=== PATIENT | female | born 1965 | race Caucasian/White ===

== ENCOUNTER → 2021-01-11 07:43 | Outpatient (CLI) | payer BC, SELFPAY ==
[2021-01-11 08:47] LABS: Add Manual Diff / Slide Review NO; Basophils Absolute Auto 100 /uL (0-100); Basophils Percent Auto 1.1 % (0-2); Eosinophils Absolute Auto 300 /uL (0-450); Eosinophils Percent Auto 4.2 % (2-4); Hemoglobin 14.1 g/dL (12.0-16.0); Lymphocytes Absolute Auto 2200 /uL (1100-4500); Lymphocytes Percent Auto 34.8 % (25-40); Mean Corpuscular HGB Conc 33.5 % (30-36); Mean Corpuscular Hemoglobin 30.7 PG (26-34); Mean Corpuscular Volume 91.5 fL (80-100); Monocytes Absolute Auto 400 /uL (0-900); Monocytes Percent Auto 6.2 % (3-14); Neutrophils Absolute Auto 3400 /uL (1500-7000); Neutrophils Percent Auto 53.7 % (50-75); Platelet Count 336 X10^3/uL (150-400); Red Blood Cell Count 4.58 X10^6/uL (4.0-5.2); Red Cell Distribution Width 13.6 % (11.6-14.8); White Blood Cell Count 6.4 X10^3/uL (4.5-11.0)
[2021-01-11 09:38] LABS: Alanine Aminotransferase 10 IU/L (<35); Albumin 4.3 g/dL (3.5-5.0); Albumin Globulin Ratio 1.4 (1.0-2.8); Alkaline Phosphatase 69 U/L (38-126); Aspartate Aminotransferase 26 IU/L (14-36); Bilirubin Total 0.4 mg/dL (0.2-1.3); Blood Urea Nitrogen 17 mg/dL (7-17); Calcium 9.2 mg/dL (8.4-10.2); Carbon Dioxide 23 mmol/L (22-32); Chloride 107 mmol/L (98-107); Cholesterol 201 mg/dL (140-199); Estimated Glomerular Filt Rate > 60.0 mL/min (>60); Globulin 3.1 g/dL (1.7-4.1); Glucose 95 mg/dL (70-100); HDL Cholesterol 82 mg/dL (40-60); HEMOLYSIS < 15 (0-50); LDL Cholesterol Calculated 102 mg/dL (<100); Potassium 4.1 mmol/L (3.4-5.1); Sodium 138 mmol/L (137-145); Total Protein 7.4 g/dL (6.3-8.2); Triglycerides 84 mg/dL (35-150)
[2021-01-11 09:47] LABS: Thyroid Stimulating Hormone 3.26 uIU/mL (0.47-4.68)
== END ==
PROVIDERS: Referring Provider Nurse Practitioner Obstetrics & Gynecology; Visit Provider Nurse Practitioner Obstetrics & Gynecology
DX: Z13.9 Encounter for screening, unspecified (principal); Z13.228 Encounter for screening for other metabolic disorders; Z13.220 Encounter for screening for lipoid disorders; Z13.29 Encounter for screening for other suspected endocrine disorder
CPT/HCPCS: 36415; 80053; 80061; 84443; 85025

== ENCOUNTER → 2023-01-16 07:55 | Outpatient (CLI) | payer BC, SELFPAY ==
[2023-01-16 09:44] LABS: Hematocrit 42.5 % (36-46); Hemoglobin 14.4 g/dL (12.0-16.0); Mean Corpuscular HGB Conc 33.9 % (30-36); Mean Corpuscular Hemoglobin 31.2 PG (26-34); Platelet Count 355 X10^3/uL (150-400); Red Blood Cell Count 4.62 X10^6/uL (4.0-5.2); Red Cell Distribution Width 13.7 % (11.6-14.8); White Blood Cell Count 6.7 X10^3/uL (4.5-11.0)
[2023-01-16 10:08] LABS: Alanine Aminotransferase 17 IU/L (<35); Albumin 4.4 g/dL (3.5-5.0); Albumin Globulin Ratio 1.5 (1.0-2.8); Alkaline Phosphatase 67 U/L (38-126); Aspartate Aminotransferase 25 IU/L (14-36); BUN Creatinine Ratio 21.4 (6-22); Bilirubin Total 0.7 mg/dL (0.2-1.3); Blood Urea Nitrogen 18 mg/dL (7-17); Calcium 8.8 mg/dL (8.4-10.2); Carbon Dioxide 25 mmol/L (22-32); Chloride 105 mmol/L (98-107); Cholesterol 207 mg/dL (140-199); Estimated Glomerular Filt Rate > 60 mL/min (>60); Glucose 87 mg/dL (70-100); HDL Cholesterol 78 mg/dL (40-60); HEMOLYSIS < 15 (0-50); LDL Cholesterol Calculated 113 mg/dL (<100); Magnesium 2.2 mg/dL (1.6-2.3); Potassium 4.4 mmol/L (3.4-5.1); Sodium 139 mmol/L (137-145); Total Protein 7.4 g/dL (6.3-8.2); Triglycerides 82 mg/dL (35-150)
[2023-01-16 10:21] LABS: Free T4, Direct Thyroxine 1.05 ng/dL (0.78-2.19)
[2023-01-16 10:22] LABS: Prolactin 17.3 ng/mL (3.0-18.6)
[2023-01-16 10:23] LABS: Vitamin D 25 Hydroxy (D3) 21.8 ng/mL (30.0-100.0)
[2023-01-16 10:35] LABS: Thyroid Stimulating Hormone 2.77 uIU/mL (0.47-4.68)
[2023-01-17 07:36] LABS: x Labcorp Estim. Avg Glu (eAG) 108 mg/dL (.); x Labcorp Hemoglobin A1c 5.4 % (4.8-5.6)
== END ==
PROVIDERS: PCP Registered Nurse Diabetes Educator; Referring Provider Registered Nurse Diabetes Educator; Visit Provider Registered Nurse Diabetes Educator
DX: Z00.00 Encounter for general adult medical examination without abnormal findings (principal); G43.009 Migraine without aura, not intractable, without status migrainosus; L68.0 Hirsutism; R63.5 Abnormal weight gain
CPT/HCPCS: 36415; 80053; 80061; 82306; 82627; 83036; 83498; 83735; 84146; 84403; 84439; 84443; 85027

== ENCOUNTER 2023-04-27 06:32 | Day surgery (SDC) | payer BC, SELFPAY ==
--- NOTE | 2023-04-27 | PATH_ITS ---
[facility] Accession Number: [id number] No. of containers..02 Tissue . 01 Material submitted: . PART A: colon - TRANSVERSE POLYP PART B: colon - DESCENDING POLYP . 01 Diagnosis: A. Transverse Colon, Polyp: Tubular adenoma. . B. Descending Colon, Polyp: Benign lymphoid aggregate. [facility] 05/07/2023 1134 Local . 01 Electronically signed: . Cristiana Lopez MD, Pathologist NPI- [id number] . 01 Gross description: . Part A: TRANSVERSE POLYP: Received in formalin are 3 fragment(s) of álvarez, soft tissue measuring 0.1 x 0.1 x 0.1 cm to 0.4 x 0.1 x 0.1 cm submitted entirely in 1 cassette(s) Part B: DESCENDING POLYP: Received in formalin is 1 fragment(s) of álvarez, soft tissue measuring 0.4 x 0.1 x 0.1 cm submitted entirely in 1 cassette(s) /SHAKEEL 05/03/2023 0109 Local . 01 Pathologist provided ICD-10: D12.3 . 01 CPT . 501191, 534506 Specimen Comment: A courtesy copy of this report has been sent to [facility] Pathology Performed at: 01 [facility] [address] [facility] [address] [facility], [place], [place] [id number] MD Oziel Boston MD Phone: [phone]
[2023-04-27 06:51] VITALS: BP 159/89; PULSE 81; RESP 16; TEMP 36.6; O2SAT 98; BMI 25.6
[2023-04-27] MEDS: LACTATED RINGERS 1,000 ML 125 ML IV (07:07)
--- NOTE | 2023-04-27 07:40 | P.HP_ITS ---
History of Present Illness History of Present Illness Date Patient Seen: 04/27/23 Time Patient Seen: 07:40 Chief complaint: Colonoscopy Narrative: 57-year-old female presents today for screening colonoscopy. She was seen in my office on 02/27/23. She has tried the fiber and is still having some symptoms from her hemorrhoid. She does have a grandfather who from colon cancer and is 8 years out from her 1st colonoscopy believes she has had polyps. She has s ome symptoms of irritation with hemorrhoid that she finds concerning. She is a little anxious about what the findings may be today but understands the risks and would like to proceed. [facility] Medical History Abnormal Pap smear of cervix (~1986) Acne (~1978) Chicken pox Dyslipidemia Migraines (~1984) Mitral valve prolapse (~1979) Surgical History Anesthesia History of breast augmentation (~10/2005) History of section (~11/14/91) History of oral surgery History of tonsillectomy (~11/2001) [place] teeth removed (~10/2015) Family History Father Hyperlipidemia Mother Cancer Hyperlipidemia Hypertension Mental health problem Grandfather Stroke Grandmother Diabetes mellitus Grandfather Cancer Grandmother Alzheimer's disease Dementia Social History household members: spouse Smoking Status: Never smoker alcohol intake: never Meds Home Medications and Allergies Home Medications Medication Instructions Recorded Confirmed Type chlorpheniramine maleate 4 mg 4 mg PO Q6H PRN Allergy Symptoms 01/15/23 04/27/23 History tablet estradiol-norethindrone acet 1 1 tab PO DAILY #84 tabs 04/18/23 04/27/23 Rx mg-0.5 mg tablet (Activella) sodium sul 1.479 gram-potas ch See Rx Instructions PO PER PKG DIR 04/24/23 Rx 0.188 gram-magnes sul 0.225 gram #24 tabs tablet (Sutab) Allergies Allergy/AdvReac Type Severity Reaction Status Date / Time ibuprofen AdvReac Severe Abdominal Verified 04/27/23 06:47 Pain Exam Vital Signs (past 8 hours): - 04/27/23 06:51 Temperature 97.9 F Pulse Rate 81 Respiratory Rate 16 Blood Pressure 159/89 H Pulse Oximetry 98 Oxygen Delivery Method Room Air Oxygen Delivery Method Room Air Const General: cooperative, healthy appearing and comfortable HENMT Head: normal to inspection Eyes General: appearance normal, both eyes and all related structures Resp Effort & Inspection: normal respiratory effort and able to speak in complete sentences GI Palpation: soft and No tender Extrem General: normal to inspection Assessment & Plan Assessment and plan (1) Internal hemorrhoid: Status: Acute Assessment & Plan narrative: Presents today for screening colonoscopy I discussed the risks benefits and alternatives including but not limited to perforation of the colon and an incomplete exam she fully understands these risks and would like to proceed.
[2023-04-27 08:33] VITALS: BP 101/63; PULSE 67; RESP 12; TEMP 36.4; O2SAT 97
[2023-04-27 08:39] VITALS: BP 118/79; PULSE 66; RESP 12; O2SAT 99
[2023-04-27 08:43] VITALS: BP 132/82; PULSE 71; RESP 16; RESP 17; TEMP 36.8; O2SAT 100
--- NOTE | 2023-04-27 08:46 | PM.OP.COLON ---
Operative Date/Time/Diagnoses Date of procedure: 04/27/23 Time of procedure: 08:46 Pre-op diagnosis: Internal hemorrhoid, screening colonoscopy, family history of colon cancer Procedure & Clinicians Study performed: 1.Colonoscopy and biopsy 2. Internal hemorrhoid banding of 1 pile-right posterior position Same procedure as scheduled: Yes Indications: Family history of colon cancer, history of polyps. Internal hemorrhoids symptoms Surgeon: Juju Stout Procedure Notes Procedure in detail: Patient was taken to the endoscopy suite and placed in a left lateral decubitus position. A time-out was performed. With the help of anesthesiologist conscious sedation was induced and monitored throughout the case. A digital rectal exam was performed and there were no masses or strictures. No external hemorrhoids were appreciated on exam. There were a few skin tags and in particular a scar in the perineal area between the vaginal opening and the anal opening. The colonoscope was introduced into the anal canal and advanced through to the cecum. A photograph of the appendiceal orifice was obtained. The bowel prep was good [place] bowel prep score of 2. The scope was then withdrawn for a total of 12 minutes and there was proximally 7 or 8 mm sessile polyp in the transverse colon a photograph was obtained of this polyp and it was removed in 3 bites of the Jumbo forceps and sent for pathology. Upon further withdrawal there was 1 very small polyp in the descending colon which was removed in a single bite with the forceps. The scope was then retroflexed and a photograph of the internal hemorrhoidal piles was obtained. There was 1 most prominent internal hemorrhoid seen and a decision was made to proceed with a banding procedure. The colonoscope was withdrawn and the anoscope was introduced. The hemorrhoidal piles were examined once again and again there was 1 most prominent pile, which was in the right posterior position. A band was placed well above the dentate line and distal to the bulging hemorrhoid. The band was secure and in place and there was some bleeding of the mucosa which was contained within the band but otherwise was acceptably hemostatic and secure. Patient tolerated this procedure well scope was then withdrawn and she went in good condition to the postoperative care unit. Specimen(s): other (1. Transverse colon polyp 2. Descending colon polyp) Complications: none Post-procedure Plan for aftercare: Based on pathology report follow up recommendation will be made. With a family history of colon cancer generally a 5 year follow-up is recommended.
[2023-04-27 08:49] VITALS: BP 132/82; PULSE 72; RESP 18; O2SAT 100
== END 2023-04-27 09:05 | disposition home or self-care (01) ==
PROVIDERS: PCP Registered Nurse Diabetes Educator; Referring Provider Surgery; Visit Provider Surgery
PROC: 0DJD8ZZ Inspection of Lower Intestinal Tract, Via Natural or Artificial Opening Endoscopic (ICD-10-PCS; CPT 45378; principal; 2023-04-27 07:45)
DX: Z12.11 Encounter for screening for malignant neoplasm of colon (principal); Z80.0 Family history of malignant neoplasm of digestive organs; K64.8 Other hemorrhoids; N90.89 Other specified noninflammatory disorders of vulva and perineum; D12.3 Benign neoplasm of transverse colon
CPT/HCPCS: 45380; 46221; J2704

== ENCOUNTER → 2023-08-14 08:14 | Outpatient (CLI) | payer BC, SELFPAY ==
--- NOTE | 2023-08-14 | DI.MG.S_ITS ---
BILATERAL DIGITAL SCREENING MAMMOGRAM 3D/2D WITH CAD WITH AUGMENTATION: 08/14/2023 CLINICAL: Routine screening. Family history of breast cancer. Comparison is made to exams dated: 06/20/2022 mammogram and 04/18/2021 mammogram - outside location. There are scattered areas of fibroglandular density in both breasts (category b / 25%-50% glandular tissue). Current study was also evaluated with a Computer Aided Detection (CAD) system. Bilateral saline implants are intact. There is a new oval focal asymmetry in the left breast at 9 o'clock anterior depth. No other significant masses, calcifications, or other findings are seen in either breast. IMPRESSION: INCOMPLETE: NEEDS ADDITIONAL IMAGING EVALUATION The new oval focal asymmetry in the left breast is indeterminate. Additional views with possible ultrasound are recommended. Based on Tyrer-Cuzick model (a risk assessment model), the patient's lifetime risk is 20.4% and her 10 year risk is 8.1%. If a patient has an elevated risk, a more comprehensive evaluation should be considered and/or a referral to a genetic counselor. The [place] [employer], [place] [employer], and NCCN Guidelines advise the consideration of Breast MRI as an adjunct to screening mammography in patients whose Lifetime risk to develop breast cancer is 20% or higher. This exam was interpreted at Station ID: [id number]. NOTE: For mammograms, a report in lay terms will be sent to the patient. Approximately 15% of breast malignancies will not be visualized mammographically. In the management of a palpable breast mass, a negative mammogram must not discourage biopsy of a clinically suspicious lesion. Electronically Signed By: Freddie johnson/tori:08/14/2023 12:36:59 letter sent: Additional Imaging Needed ACR BI-RADS Category 0: Incomplete 3340F
== END ==
PROVIDERS: PCP Registered Nurse Diabetes Educator; Referring Provider Registered Nurse Diabetes Educator; Visit Provider Registered Nurse Diabetes Educator
DX: Z12.31 Encounter for screening mammogram for malignant neoplasm of breast (principal); Z80.3 Family history of malignant neoplasm of breast
CPT/HCPCS: 77063; 77067

== ENCOUNTER → 2023-08-22 08:00 | Outpatient (CLI) | payer BC, SELFPAY ==
--- NOTE | 2023-08-22 08:00 | DI.ECHO.S_ITS ---
[facility] +---------+ [facility] +---------+ : : [address] : : : : [address] : : : : Phone: [phone]+ Echocardiogram Report + + :Name: RAYMOND RICHEY Study Date: 08/22/2023 Height: 62 in : [facility] ReadingLocation: Weight: 140 lb : : Gender: Female BSA: 1.6 m2 : :: 1965 Age: 58 yrs BP: 143/84 mmHg: :Reason For Study: MITRAL VALVE PROLAPSE : :Ordering Physician: ANDRES, : :VLAD Performed By: Cata Balderas : :Referring: VLAD CAMPOS : + + Interpretation Summary The ejection fraction is estimated to be 55-60%. Diastolic parameters suggest probable normal left ventricular diastolic function and normal filling pressures. The right ventricle is normal in size and function. There is mild mitral regurgitation. There is mild aortic regurgitation. There is mild tricuspid regurgitation. The right ventricular systolic pressure is estimated to be at least 16 mmHg based on an estimated right atrial pressure of 3 mm Hg. Procedure: A two-dimensional transthoracic echocardiogram with color flow and Doppler was performed. The study quality was technically adequate. There is no prior echocardiogram noted for this patient. The patient was in sinus bradycardia with heart rates between 53-60 bpm during the exam. Left Ventricle: Proximal septal thickening is noted. The left ventricle is normal in size. The ejection fraction is estimated to be 55-60%. Diastolic parameters suggest probable normal left ventricular diastolic function and normal filling pressures. Right Ventricle: The right ventricle is normal in size and function. Atria: The left atrial size is normal. Right atrial size is normal. There is no Doppler evidence for an interatrial shunt. Mitral Valve: The mitral valve is normal. There is mild mitral regurgitation. Aortic Valve: The aortic valve is trileaflet. The aortic valve opens well. There is no aortic valve stenosis. There is mild aortic regurgitation. Tricuspid Valve: The tricuspid valve is normal in structure and function. There is mild tricuspid regurgitation. The right ventricular systolic pressure is estimated to be at least 16 mmHg based on an estimated right atrial pressure of 3 mm Hg. Pulmonic Valve: The pulmonic valve leaflets are thin and pliable; valve motion is normal. There is mild pulmonic regurgitation. Great Vessels: The aortic root is normal size. The dimensions of the ascending aorta are normal. The IVC is of normal diameter and collapses greater than 50% with a sniff. This suggests a low right atrial pressure of 3 mm Hg. Pericardium/ Pleura There is no pericardial effusion. There is no pleural effusion. MMode/2D Measurements & Calculations LVIDd: 4.3 cm LVOT diam: 2.2 cm LVIDs: 2.9 cm Ao root diam: 3.4 cm FS: 32.2 % asc Aorta Diam: 3.4 cm IVSd: 0.78 cm Ao Arch Diam (Prox Trans): 2.9 cm LVPWd: 0.63 cm LV isaac. diameter/BSA (cm/m^2): 2.6 LV sys. diameter/BSA (cm/m^2): 1.8 LA A2 area: 14.2 cm2 RA long axis: 4.7 cm LA A4 area: 14.9 cm2 RA area: 15.3 cm2 LA length (vol): 4.6 cm RA vol: 42.4 ml LA vol: 38.9 ml RA : 25.8 ml/m2 LA vol index: 23.7 ml/m2 IVC diam: 1.5 cm RVD1 (basal): 3.9 cm RVD2 (mid): 2.9 cm TAPSE: 2.2 cm Doppler Measurements & Calculations Ao V2 max: 145.8 cm/sec LVOT Max Sandeep: 101.4 cm/sec Ao V2 mean: 105.8 cm/sec LV V1 max P.1 mmHg Ao max P.5 mmHg LV V1 VTI: 21.4 cm Ao mean P.9 mmHg RAY(I,D): 2.5 cm2 Ao V2 VTI: 31.4 cm RAY(V,D): 2.6 cm2 sev ratio: 0.68 RAY indexed to BSA (cm^2/m^2): 1.6 AI P1/2t: 768.6 msec AI dec slope: 176.9 cm/sec2 MV E max sandeep: 60.9 cm/sec TR max sandeep: 179.6 cm/sec MV A max sandeep: 59.6 cm/sec TR max P.9 mmHg MV E/A: 1.0 PA V2 max: 76.8 cm/sec Med Peak E' Sandeep: 8.0 cm/sec PA V2 mean: 51.9 cm/sec E/E' med: 7.7 PA mean P.2 mmHg Lat Peak E' Sandeep: 12.8 cm/sec PA pr(Accel): 20.8 mmHg E/E' lat: 4.7 E/e' average: 6.2 MV dec time: 0.22 sec [facility] 80.0 ml Reading Physician:05:23 PM
== END ==
PROVIDERS: PCP Registered Nurse Diabetes Educator; Referring Provider Registered Nurse Diabetes Educator; Visit Provider Registered Nurse Diabetes Educator
DX: I34.1 Nonrheumatic mitral (valve) prolapse (principal); I08.3 Combined rheumatic disorders of mitral, aortic and tricuspid valves
CPT/HCPCS: 93306

== ENCOUNTER → 2023-09-04 10:18 | Outpatient (CLI) | payer BC, SELFPAY ==
--- NOTE | 2023-09-04 | DI.MG.S_ITS ---
UNILATERAL LEFT DIGITAL DIAGNOSTIC MAMMOGRAM 3D/2D WITH ADDITIONAL VIEWS: 09/04/2023 CLINICAL: Additional evaluation requested from prior study. Comparison is made to exams dated: 08/14/2023 mammogram - [facility], 06/20/2022 mammogram, and 04/18/2021 mammogram - outside location. There are scattered areas of fibroglandular density in the left breast (category b / 25%-50% glandular tissue). There is a new 4 mm oval equal density focal asymmetry with an indistinct and questionably spiculated margin in the left breast at 9 o'clock anterior depth. This is seen in additional views. No other significant masses or calcifications are seen in the breast. IMPRESSION: INCOMPLETE: NEEDS ADDITIONAL IMAGING EVALUATION The new 4 mm asymmetry in the left breast remains indeterminate. An ultrasound is recommended. This was performed immediately following this exam. Based on Tyrer-Cuzick model (a risk assessment model), the patient's lifetime risk is 20.4% and her 10 year risk is 8.1%. If a patient has an elevated risk, a more comprehensive evaluation should be considered and/or a referral to a genetic counselor. The [place] [employer], [place] [employer], and NCCN Guidelines advise the consideration of Breast MRI as an adjunct to screening mammography in patients whose Lifetime risk to develop breast cancer is 20% or higher. This exam was interpreted at Station ID: [id number]. NOTE: For mammograms, a report in lay terms will be sent to the patient. Approximately 15% of breast malignancies will not be visualized mammographically. In the management of a palpable breast mass, a negative mammogram must not discourage biopsy of a clinically suspicious lesion. Electronically Signed By: Christina veloz/:09/04/2023 11:41:25 ACR BI-RADS Category 0: Incomplete 3340F
--- NOTE | 2023-09-04 10:19 | DI.US.S_ITS ---
LIMITED ULTRASOUND OF LEFT BREAST- WITH AUGMENTATION: 09/04/2023 CLINICAL: Patient returns today to evaluate an asymmetry in the left breast. Comparison is made to exams dated: 09/04/2023 mammogram - [facility], 06/20/2022 mammogram - outside location, 08/14/2023 mammogram - [facility], and 04/18/2021 mammogram - outside location. Color flow ultrasound of the left breast 9 o'clock region was performed. Grove scale images of the real-time examination were reviewed. There is a possible 0.3 cm x 0.3 cm x 0.3 cm oval mass with a circumscribed margin in the left breast at 9 o'clock posterior depth 8 cm from the nipple. This oval mass is isoechoic to minimally hypoechoic compared to surrounding tissue, with an echogenic boundary, and no posterior acoustic shadowing or enhancement. This correlates with mammography findings. Color flow imaging demonstrates that there is adjacent vascularity. IMPRESSION: PROBABLY BENIGN The possible 0.3 cm mass in the left breast corresponds to the mammogram finding, may be a lymph node, fibroglandular tissue, fibroadenoma, or other and is probably benign. A follow-up left mammogram and an ultrasound in 6 months is recommended to demonstrate stability. Findings and recommendations were conveyed to the patient at time of exam. This exam was interpreted at Station ID: [id number]. Electronically Signed By: Christina veloz/:09/04/2023 11:46:46 letter sent: Followup Recommended Ultrasound BI-RADS: 3 Probably benign
== END ==
PROVIDERS: PCP Registered Nurse Diabetes Educator; Referring Provider Registered Nurse Diabetes Educator; Visit Provider Registered Nurse Diabetes Educator
DX: R92.8 Other abnormal and inconclusive findings on diagnostic imaging of breast (principal); N64.89 Other specified disorders of breast
CPT/HCPCS: 76642; 77065; G0279